=== PATIENT | male | born 1960 | race Caucasian/White ===

== ENCOUNTER 2020-03-13 16:03 | Emergency (ER) | payer OTHER ==
[~2020-03-13] VITALS: Ht 175.3 cm; Wt 95.3 kg
== END 2020-03-13 21:13 | disposition home or self-care (01) ==
LOC: ER 16:03
DX: R41.0 Disorientation, unspecified (principal); K72.90 Hepatic failure, unspecified without coma; U07.1 COVID-19

== ENCOUNTER 2022-02-17 11:15 | Inpatient (IN) | payer OTHER ==
[~2022-02-17] VITALS: Ht 172.7 cm; Wt 90.3 kg
[2022-02-17] MEDS ORDERED: TRULIC (12:57)
[2022-02-17] MEDS ORDERED: WELLBUTRIN SR150 MG PO (12:58)
[2022-02-17] MEDS ORDERED: NOVOLOG MI100 UNIT/2 (12:58)
[2022-02-17] MEDS ORDERED: OMEPRAZ PO (12:59)
[2022-02-17] MEDS ORDERED: LACTU PO (13:00)
[2022-02-17] MEDS ORDERED: CIALIS2.5 MG PO (13:00)
[2022-02-21] MEDS ORDERED: TRULICITY0.75 MG/0. (08:33)
[2022-02-21] MEDS ORDERED: PRILOSEC OTC20 MG (08:34)
[2022-02-24] MEDS ORDERED: ULTRACET PO (14:07)
== END 2022-02-24 15:05 | disposition home or self-care (01) | DRG 330 ==
LOC: SURH 02-20 06:40 → SURG 02-20 06:40 → SURH 02-24 13:53 → SURG 02-24 14:32
PROVIDERS: ADMIT Surgery; ATTEND Surgery
PROC: 07BB4ZZ Excision of Mesenteric Lymphatic, Percutaneous Endoscopic Approach (ICD-10-PCS; 2022-02-21)
PROC: 30233R1 Transfusion of Nonautologous Platelets into Peripheral Vein, Percutaneous Approach (ICD-10-PCS; 2022-02-21)
PROC: 0DTF4ZZ Resection of Right Large Intestine, Percutaneous Endoscopic Approach (ICD-10-PCS; principal; 2022-02-21 09:00)
PROC: 4A12X4Z Monitoring of Cardiac Electrical Activity, External Approach (ICD-10-PCS; 2022-02-22)
DX: C18.2 Malignant neoplasm of ascending colon (principal); D62 Acute posthemorrhagic anemia; K76.6 Portal hypertension; I85.00 Esophageal varices without bleeding; D68.9 Coagulation defect, unspecified; D12.3 Benign neoplasm of transverse colon; R59.0 Localized enlarged lymph nodes; D69.6 Thrombocytopenia, unspecified; K74.69 Other cirrhosis of liver; Z20.822 Contact with and (suspected) exposure to COVID-19; E11.9 Type 2 diabetes mellitus without complications

== ENCOUNTER → 2022-04-29 08:00 | Outpatient (CLI) | payer OTHER ==
[~2022-04-29] VITALS: Ht 172.7 cm; Wt 88.0 kg
[~2022-04-29 08:00] MED LIST: CIALIS2.5 MG PO; CIALIS5 MG PO; FLOXURIDINE500 MG IJ; HUMULIN 70100 UNIT/2; LACTU PO; LACTULOSE10 GM/151 PO; NOVOLOG MI100 UNIT/2; OMEPRAZ PO; PRILOSEC OTC20 MG; TRULIC; TRULICITY0.75 MG/0.; ULTRACET PO; WELLBUTRIN SR150 MG PO
== END | disposition home or self-care (01) ==
LOC: LAB 08:00 → ADM 08:45 → CIR.AMB 05-05 07:00 → EDSTATUS 05-05 08:45 → CIR.AMB 05-05 08:45
PROVIDERS: ATTEND Surgery
DX: D01.0 Carcinoma in situ of colon (principal); D37.4 Neoplasm of uncertain behavior of colon; C18.2 Malignant neoplasm of ascending colon; R59.0 Localized enlarged lymph nodes; Z03.818 Encounter for observation for suspected exposure to other biological agents ruled out; I10 Essential (primary) hypertension